=== PATIENT | female | born 1975 | race Two or more races ===

== ENCOUNTER 2017-04-01 10:57 | Emergency (ER) | payer MEDICAID ==
[2017-04-01 11:09] VITALS: RESP 16
[2017-04-01] MEDS ORDERED: IBUPROFEN 600 MG TAB PO ONE (11:36)
--- NOTE | 2017-04-01 11:58 | EDPHY ---
H & P Time Seen by Provider: 04/01/17 11:46 HPI/ROS: Chief complaint. Back injury HPI. Patient 42-year-old female presents emergency department 3 days after slipping and falling onto her back on concrete. She said she hit her head as well as her neck and her back. She then had a seizure 1 hr afterwards. She has had previous seizure disorder. She was seen at [facility] who worked her up for the seizure and head injury. She has continued to have right-sided low back pain. She has been using baclofen and lidocaine patches. No leg weakness or bowel or bladder symptoms. It hurts to twist and move ROS Constitutional. no fever/chills, no weakness Eyes. no problems with vision ENT. no sore throat, no nasal drainage Cardiovascular. no chest pain Respiratory. no shortness of breath, no cough Abdominal. no abdominal pain, no nausea/vomiting, no diarrhea . no problems urinating MS. Low back pain Skin. no rash Lymph. no swollen glands Neuro. no headache, no dizziness, no difficulty walking or with speech Past Medical/Surgical History: Fibromyalgia TE fistula jugular DVT, seizure disorder, appendectomy, cholecystectomy, anxiety/depression Social History: Single, daily smoker, no alcohol Smoking Status: Current every day smoker Physical Exam: General Appearance: Alert well-developed female mild distress vital signs are stable Eyes: Pupils equal and round no pallor or injection. ENT, Mouth: Mucous membranes are moist. Respiratory: There are no retractions, lungs are clear to auscultation. Cardiovascular: Regular rate and rhythm. Gastrointestinal: Abdomen is soft and nontender, no masses, bowel sounds normal. Neurological: Awake and alert, sensory and motor exams grossly normal. Skin: Warm and dry, no rashes. Musculoskeletal: Neck is supple nontender. Tenderness to the right side of the lumbar area. There is no surface trauma. No swelling. Extremities symmetrical, full range of motion. Psychiatric: Patient is oriented X 3, there is no agitation. Constitutional: Initial Vital Signs Temperature (C) 36.9 C 04/01/17 11:03 Heart Rate 109 H 04/01/17 11:03 Respiratory Rate 16 04/01/17 11:03 Blood Pressure 117/61 04/01/17 11:03 O2 Sat (%) 94 04/01/17 11:03 O2 Delivery Mode Room Air Allergies/Adverse Reactions: ondansetron [From Zofran (as hydrochloride)] Allergy (Verified 04/01/17 11:09) pt reports GARNICA trazodone Allergy (Verified 04/01/17 11:09) Pt reports itching, hives Home Medications: Medication Instructions Recorded Baclofen 04/01/17 Cymbalta 04/01/17 Hydroxyzine HCl 04/01/17 Lidocaine 5% [Lidoderm 5% Patch 1 ea TD DAILY #30 patch 04/01/17 (*)] Lyrica 04/01/17 Omeprazole 04/01/17 Promethazine HCl 04/01/17 Seroquel 04/01/17 Topamax 04/01/17 Medical Decision Making - Diagnostics Imaging Results: X-ray lumbar spine shows spondylolisthesis at L5-S1 but otherwise no evidence for fracture dislocation Procedures: Ibuprofen Lidocaine patch applied in the ED ED Course/Re-evaluation: Re-evaluation at 12:30 p.m.. The patient, her partner, and I discussed imaging study results, treatment plan including criteria for return importance of follow -up and further evaluation. They expressed understanding and agreement. Patient is comfortable using ibuprofen only for discomfort Differential Diagnosis: I think this is contusion and sprain. I considered fracture and dislocation as well - Data Points Medications Given: Discontinued Medications Ibuprofen (Motrin) 600 mg PO EDNOW ONE Stop: 04/01/17 11:37 Last Admin: 04/01/17 11:38 Dose: 600 mg Departure - Departure Disposition: Home, Routine, Self-Care Clinical Impression: Low back pain Qualifiers: Chronicity: acute Back pain laterality: right Sciatica presence: without sciatica Qualified Code(s): M54.5 - Low back pain Condition: Good Instructions: Acute Low Back Pain (ED) Additional Instructions: Heat to sore area of back. Ibuprofen 600 mg every 6 hr. Lidocaine patches using them a patch on for 12 hr on and off 12 hr. Return for worsening pain, bowel or bladder symptoms, leg weakness. Re-evaluation in 2-3 days by regular physician if not improving Referrals: UNK,UNK [Other] - As per Instructions Prescriptions: Lidocaine 5% [Lidoderm 5% Patch (*)] 1 ea TD DAILY #30 patch
[2017-04-01] MEDS ORDERED: LIDOCAINE 5% 1 EA PATCH TD ONE (12:40)
[2017-04-01 12:49] VITALS: BP 121/61; PULSE 92; TEMP 98.1; O2SAT 96
[2017-04-01] MEDS ORDERED: PATCH REMOVAL 1 EA PATCH TD SCH (21:00)
== END 2017-04-01 12:49 | disposition home or self-care (01) ==
LOC: CED 10:57
DX: S39.92XA Unspecified injury of lower back, initial encounter (principal); F17.200 Nicotine dependence, unspecified, uncomplicated; W01.0XXA Fall on same level from slipping, tripping and stumbling without subsequent striking against object, initial encounter
CPT/HCPCS: 72100-PO